=== PATIENT | female | born 1955 | race Caucasian/White ===

== ENCOUNTER 2017-01-18 09:54 | Emergency (ER) | payer MEDICARE, OTHER | END 2017-01-18 12:57 | disposition home or self-care (01) | LOC: FER 09:54 | DX: M54.2 Cervicalgia (principal); G89.29 Other chronic pain; Z87.39 Personal history of other diseases of the musculoskeletal system and connective tissue; Z88.5 Allergy status to narcotic agent | CPT/HCPCS: 72040; J1885 ==

== ENCOUNTER 2021-03-06 07:58 | Emergency (ER) | payer MEDICARE, OTHER ==
[~2021-03-06 07:58] MED LIST: ARNUITY ELLIP100 MCG INH; SYNTHROID75 MCG PO; [UNRECOGNIZED DRUG - OTHER] PO
[2021-03-06 08:41] LABS: BILIRUBIN NEGATIVE (NEGATIVE); BLOOD NEGATIVE Ery/uL (NEGATIVE); CLARITY CLEAR (CLEAR); COLOR YELLOW (YELLOW); GLUCOSE (U) NORMAL (NORMAL); LEUKOCYTES NEGATIVE Leu/uL (NEGATIVE); NITRITE NEGATIVE (NEGATIVE); PROTEIN NEGATIVE (NEGATIVE); SPECIFIC GRAVITY >=1.030 (1.001-1.030); UROBILINOGEN 0.2 mg/dL (0.2-1.0); pH 5.5 (5.0-9.0)
[2021-03-06 08:41] LABS: BASOPHIL 1.1 % (0-2); EOSINOPHIL 2.4 % (0-7); HCT 41.4 % (37.0-47.0); HGB 13.7 g/dl (12.5-16.0); LYMPHOCYTE 21.6 % (15-48); MCH 31.1 pg (25.0-31.0); MCHC 33.1 g/dL (32.0-36.0); MCV 94.1 fL (78.0-100.0); MONOCYTE 5.3 % (0-12); MPV 8.9 fL (6.0-9.5); NEUTROPHIL 68.2 % (41-80); NRBC 0; PLT 318 K/uL (150-400); RDW 12.7 % (11.5-14.0); WBC 10.1 K/uL (4.0-10.5)
[2021-03-06 09:19] LABS: ALBUMIN 3.3 g/dL (3.4-5.0); BILIRUBIN - TOTAL 0.3 mg/dL (0.2-1.0); BUN/CREAT RATIO (CALC) 17.8 RATIO; C-REACTIVE PROTEIN 0.6 mg/dL (<=0.90); CREATININE 0.9 mg/dL (0.51-0.95); FT4 (FREE T4) 0.9 ng/dL (0.76-1.46); POTASSIUM 4.3 mmol/L (3.5-5.1); TOTAL PROTEIN 7.3 g/dL (6.4-8.2)
[2021-03-06 09:24] LABS: INR 0.95 (0.9-1.2); PROTHROMBIN TIME 12.1 SECONDS (11.8-13.4)
[2021-03-06 09:36] LABS: LACTIC ACID 1.6 mmol/L (0.4-1.9)
== END 2021-03-06 23:05 | disposition other institution (70) ==
LOC: FER 07:58
PROVIDERS: Emergency Medicine Emergency Medical Services
DX: G45.9 Transient cerebral ischemic attack, unspecified (principal); R29.700 NIHSS score 0; R11.2 Nausea with vomiting, unspecified; E07.9 Disorder of thyroid, unspecified; Z88.5 Allergy status to narcotic agent; Z79.899 Other long term (current) drug therapy; Z20.822 Contact with and (suspected) exposure to COVID-19
CPT/HCPCS: 36415; 70450; 70551; 71045; 80053; 81003; 83605; 84439; 84443; 84484; 85025; 85610; 85730; 86140; 87040; 93005; J2405; J7030; Q9967; U0002

== ENCOUNTER 2021-03-30 12:34 | Emergency (ER) | payer MEDICARE, OTHER ==
[2021-03-30 14:44] LABS: BASOPHIL 0.2 % (0-2); EOSINOPHIL 0 % (0-7); HCT 40.7 % (37.0-47.0); HGB 13.7 g/dl (12.5-16.0); LYMPHOCYTE 17.7 % (15-48); MCH 30.1 pg (25.0-31.0); MCHC 33.7 g/dL (32.0-36.0); MCV 89.5 fL (78.0-100.0); MONOCYTE 6.9 % (0-12); MPV 9.3 fL (6.0-9.5); NEUTROPHIL 74.7 % (41-80); NRBC 0; PLT 192 K/uL (150-400); RBC 4.55 M/uL (4.20-5.40); RDW 12.7 % (11.5-14.0); WBC 5.9 K/uL (4.0-10.5)
[2021-03-30 15:04] LABS: BUN/CREAT RATIO (CALC) 14.4 RATIO; CREATININE 0.97 mg/dL (0.51-0.95); POTASSIUM 4.2 mmol/L (3.5-5.1)
== END 2021-03-30 18:40 | disposition home or self-care (01) ==
LOC: FER 12:34
PROVIDERS: Nurse Practitioner Family
DX: U07.1 COVID-19 (principal); J44.9 Chronic obstructive pulmonary disease, unspecified; E03.9 Hypothyroidism, unspecified; Z86.73 Personal history of transient ischemic attack (TIA), and cerebral infarction without residual deficits; Z88.5 Allergy status to narcotic agent; Z79.899 Other long term (current) drug therapy; Z23 Encounter for immunization
CPT/HCPCS: 36415; 71046; 80048; 85025; 93005; 94664; J2930; J7030; M0243; Q0244

== ENCOUNTER 2021-04-03 10:34 | Inpatient (IN) | payer MEDICARE, OTHER ==
[~2021-04-03] VITALS: Ht 160 cm; Wt 72.0 kg
[2021-04-03 11:21] LABS: BASOPHIL 0.4 % (0-2); EOSINOPHIL 0.2 % (0-7); HCT 42.8 % (37.0-47.0); HGB 14.1 g/dl (12.5-16.0); MCHC 32.9 g/dL (32.0-36.0); MCV 91.1 fL (78.0-100.0); MONOCYTE 7.6 % (0-12); MPV 8.9 fL (6.0-9.5); NEUTROPHIL 80.2 % (41-80); NRBC 0.2; PLT 349 K/uL (150-400); WBC 11.2 K/uL (4.0-10.5)
[2021-04-03 11:40] LABS: ALBUMIN 2.7 g/dL (3.4-5.0); BILIRUBIN - TOTAL 0.7 mg/dL (0.2-1.0); BUN/CREAT RATIO (CALC) 18.3 RATIO; CREATININE 0.82 mg/dL (0.51-0.95); GLOBULIN (CALCULATION) 4.9 g/dL; POTASSIUM 4.4 mmol/L (3.5-5.1); TOTAL PROTEIN 7.6 g/dL (6.4-8.2)
[2021-04-03 12:25] LABS: LACTIC ACID 1.5 mmol/L (0.4-1.9)
[2021-04-03 13:45] LABS: BILIRUBIN 1+ mg/dL (NEGATIVE); BLOOD NEGATIVE Ery/uL (NEGATIVE); CLARITY HAZY (CLEAR); COLOR YELLOW (YELLOW); GLUCOSE (U) NORMAL (NORMAL); LEUKOCYTES NEGATIVE Leu/uL (NEGATIVE); NITRITE NEGATIVE (NEGATIVE); PROTEIN TRACE (LOW) mg/dL (NEGATIVE)
[2021-04-03 13:54] LABS: BACTERIA 1+; URINARY RBC RARE
[2021-04-03 16:48] LABS: IRON % SATURATION 13.5 %SAT (20-50)
[2021-04-04 05:23] LABS: BASOPHIL 0.3 % (0-2); EOSINOPHIL 0 % (0-7); HCT 40.8 % (37.0-47.0); HGB 13.4 g/dl (12.5-16.0); LYMPHOCYTE 6.7 % (15-48); MCHC 32.8 g/dL (32.0-36.0); MCV 91.3 fL (78.0-100.0); MONOCYTE 7.2 % (0-12); NEUTROPHIL 84.1 % (41-80); NRBC 0; PLT 380 K/uL (150-400); RBC 4.47 M/uL (4.20-5.40); RDW 12.8 % (11.5-14.0); WBC 9.8 K/uL (4.0-10.5)
[2021-04-04 05:42] LABS: ALBUMIN 2.4 g/dL (3.4-5.0); BILIRUBIN - TOTAL 0.3 mg/dL (0.2-1.0); BUN/CREAT RATIO (CALC) 21.1 RATIO; CREATININE 0.76 mg/dL (0.51-0.95); GLOBULIN (CALCULATION) 3.9 g/dL; PHOSPHORUS 3.5 mg/dL (2.6-4.7); TOTAL PROTEIN 6.3 g/dL (6.4-8.2)
[2021-04-04 05:44] LABS: PRO-BNP 354 pg/mL (<125)
--- NOTE | 2021-04-05 14:12 | NUR ---
04/05/21 Ms. Mccullough was living alone prior to admission. She does not have any DME. She plans to go to the home of her daughter, Divine Martell, at ma. Address: [address] [place] [phone]. Will monitor for 02, DME and HH needs.
[2021-04-07 05:14] LABS: HCT 40.4 % (37.0-47.0); HGB 13.4 g/dl (12.5-16.0); MCH 29.9 pg (25.0-31.0); MCHC 33.2 g/dL (32.0-36.0); MCV 90.2 fL (78.0-100.0); MPV 8.5 fL (6.0-9.5); RBC 4.48 M/uL (4.20-5.40); RDW 12.9 % (11.5-14.0)
[2021-04-07 05:53] LABS: ALBUMIN 2.2 g/dL (3.4-5.0); BILIRUBIN - TOTAL 0.4 mg/dL (0.2-1.0); BUN/CREAT RATIO (CALC) 23.3 RATIO; C-REACTIVE PROTEIN 8.4 mg/dL (<=0.90); CREATININE 0.73 mg/dL (0.51-0.95); GLOBULIN (CALCULATION) 4.3 g/dL; POTASSIUM 4.4 mmol/L (3.5-5.1); TOTAL PROTEIN 6.5 g/dL (6.4-8.2)
[2021-04-08 04:25] LABS: HCT 38.3 % (37.0-47.0); HGB 12.9 g/dl (12.5-16.0); MCH 30.4 pg (25.0-31.0); MCHC 33.7 g/dL (32.0-36.0); MCV 90.1 fL (78.0-100.0); MPV 8.4 fL (6.0-9.5); RBC 4.25 M/uL (4.20-5.40); RDW 12.8 % (11.5-14.0); WBC 10.3 K/uL (4.0-10.5)
[2021-04-08 05:04] LABS: ALBUMIN 2.2 g/dL (3.4-5.0); BILIRUBIN - TOTAL 0.3 mg/dL (0.2-1.0); BUN/CREAT RATIO (CALC) 25.4 RATIO; CREATININE 0.67 mg/dL (0.51-0.95); GLOBULIN (CALCULATION) 4.2 g/dL; POTASSIUM 4.2 mmol/L (3.5-5.1); TOTAL PROTEIN 6.4 g/dL (6.4-8.2)
[2021-04-08] MEDS ORDERED: ASCORBIC ACID500 MG PO (13:06)
[2021-04-08] MEDS ORDERED: VITAMIN D325 MC1 PO (13:07)
[2021-04-08] MEDS ORDERED: ZINC SULFATE50 MG PO (13:07)
[2021-04-08] MEDS ORDERED: ATROVENT HFA12.9 GM INH (13:08)
[2021-04-08] MEDS ORDERED: PROVENTIL HFA6.7 GM INH (13:08)
[2021-04-08] MEDS ORDERED: DECADRON PO (13:08)
== END 2021-04-08 14:40 | disposition home health service (06) | DRG 871 ==
LOC: FER 10:34 → FTCU 14:55
PROVIDERS: Emergency Medicine; Nurse Practitioner; ADMIT Internal Medicine
PROC: XW033E5 Introduction of Remdesivir Anti-infective into Peripheral Vein, Percutaneous Approach, New Technology Group 5 (ICD-10-PCS; principal; 2021-04-03)
PROC: 8E0ZXY6 Isolation (ICD-10-PCS; 2021-04-03)
DX: A41.89 Other specified sepsis (principal); U07.1 COVID-19; J96.01 Acute respiratory failure with hypoxia; J12.82 Pneumonia due to coronavirus disease 2019; J44.0 Chronic obstructive pulmonary disease with (acute) lower respiratory infection; R65.20 Severe sepsis without septic shock; E03.9 Hypothyroidism, unspecified; Z86.73 Personal history of transient ischemic attack (TIA), and cerebral infarction without residual deficits; Z90.710 Acquired absence of both cervix and uterus; Z88.5 Allergy status to narcotic agent; Z79.890 Hormone replacement therapy; Z79.899 Other long term (current) drug therapy
CPT/HCPCS: 36415; 36600; 71275; 80053; 81001; 82607; 82728; 82803; 83540; 83550; 83605; 83615; 83735; 83880; 84100; 84145; 84484; 85025; 86140; 93005; 94010; 94640; 94667; 94668; 94762; 97110; 97166; 97530; 97535; C9399; J0456; J0696; J0780; J1100; J1650; J2405; J2930; J7030; J7050; Q9967; U0002